=== PATIENT | female | born 1990 | race African-American/Black ===

== ENCOUNTER 2019-12-18 12:34 | Emergency (ER) | payer OTHER ==
[~2019-12-18] VITALS: Ht 154.9 cm; Wt 81.2 kg
[2019-12-18] MEDS ORDERED: PEPCID AC20 MG PO (16:21)
[2019-12-18] MEDS ORDERED: ZITHROMAX500 MG PO (16:21)
[2019-12-18] MEDS ORDERED: ONDANSETRON ODT4 MG SL (16:21)
[2019-12-18] MEDS ORDERED: INTESTINEX680 M1 PO (16:21)
== END 2019-12-18 17:57 | disposition home or self-care (01) ==
LOC: ER 12:34
DX: K29.70 Gastritis, unspecified, without bleeding (principal); E86.0 Dehydration; B96.0 Mycoplasma pneumoniae [M. pneumoniae] as the cause of diseases classified elsewhere